=== PATIENT | female | born 1985 | race Caucasian/White ===

== ENCOUNTER 2022-11-23 05:29 | Inpatient (IN) | payer BC, MEDICAID, SELFPAY ==
--- NOTE | 2022-11-10 12:40 | EKG12_ITS ---
Test Reason : PRE OP Blood Pressure : / mmHG Vent. Rate : 084 BPM Atrial Rate : 084 BPM P-R Int : 136 ms QRS Dur : 074 ms QT Int : 358 ms P-R-T Axes : 078 086 067 degrees QTc Int : 423 ms Normal sinus rhythm Normal ECG Confirmed by SONI PEREA, CHIQUITA ([id number]), commercial production editor BRITNI HERNANDEZ ([id number]) on 11/11/2022 9:52:48 AM Referred By: Bradley Galeana Confirmed By:CHIQUITA SHAFER MD
[2022-11-10 13:28] LABS: Absolute Lymphocyte Count 1.82 X10^3/uL (0.83-4.51); Basophil# 0.04 X10^3/uL; Basophil% 0.7 % (0-1); Eosinophil# 0.19 X10^3/uL; Eosinophils% 3.5 % (0-5); Hematocrit 45.3 % (37-47); Lymphocyte # 1.82 X10^3/ul (0.83-4.51); Lymphocyte % 33.6 % (19-41); Mean Corp Hgb Conc 33.1 g/dL (32-36); Mean Corpuscular Hgb 29.1 pg (27.0-32.0); Mean Corpuscular Volume 87.8 fL (81-99); Mean Platelet Vol. 11.2 fl (6.2-12.0); Monocyte# 0.41 X10^3/uL; Monocyte% 7.6 % (0-10); NRBC Flagged by Analyzer 0 % (0-5); Neutrophil # 2.95 X10^3/uL (2.7-7.7); Neutrophil % 54.4 % (47-70); Platelet Count 244 K/mm3 (150-450); RBC Distribution Width CV 12.7 % (11.6-14.6); RBC Distribution Width SD 40.8 fl (35.1-43.9); Red Blood Count 5.16 M/mm3 (4.2-5.4); White Blood Count 5.4 K/mm3 (4.4-11.0)
[2022-11-10 13:53] LABS: Anion Gap 7 (5-15); BUN 15 mg/dL (7-18); BUN/Creat Ratio 16.2 RATIO (10-20); Calcium,Total 9.1 mg/dL (8.5-10.1); Chloride 107 mmol/L (98-107); Creatinine, Serum 0.92 mg/dL (0.55-1.02); EST Glomerular Filtration Rate 73 mL/min (>60); Est Glom Filt Rate - Afr Amer 88 mL/min (>60); Glucose 92 mg/dL (74-106); Potassium 3.6 mmol/L (3.5-5.1); Sodium Level 138 mmol/L (136-145)
[2022-11-10 13:54] LABS: Magnesium 2.3 mg/dL (1.6-2.6)
[2022-11-10 14:35] LABS: HIV - WCH Non-Reactive (Nonreactive); Hepatitis B Surface Antibody Reactive; Hepatitis C Antibody Non-Reactive (Nonreactive)
[2022-11-12 15:33] LABS: Hepatitis A AB, Total Negative (Negative)
--- NOTE | 2022-11-19 16:58 | PCM.HP.BLA ---
History and Physical Addendum MR#: [id number] Acct: [id number] Name:JAYANT GAMEZ Rep #: [id number] : 1985 ? ? Provider: Dr. Bradley Galeana DO Age/Sex:? 36/F ? ? Location: [facility].PAT Status: Signed Intake Vital Signs ? 09/24/2313:03 Height 5 ft 4 in Weight: 142 lb 8 oz BMI 24.4 Intake Visit Reasons:?LUMBER SPINE Is patient in pain?: Yes Pain scale (1-10): 3 Allergies No Known Allergies Allergy (Verified 09/24/22 14:04) Medications NK? 09/24/22 [History Confirmed 09/24/22] PFSH Medical History?(Updated 09/24/22 @ 15:[address] Bradley Galeana DO) Hypoglycemia MVP (mitral valve prolapse) Physical exam, pre-employment POTS (postural orthostatic tachycardia syndrome) Social History?(Updated 09/24/22 @ 14:18 by Claudia Tracy) Smoking Status:? Current every day smoker alcohol intake:? never HPI LUMBER SPINE Details: Parts of this documentation were recorded by a scribe, this documentation accurately reflects the service provided and the decisions made by me, Dr. Bradley Galeana DO 09/24/22 1024. JAYANT GARSIA is a 36 year old F here today for lower back pain. States that she has had issues with her back since she was 10. States that recently in January is when it became worse and she has been in constant pain. States that she was in PT and stopped it because the therapist told her there was nothing else they could do and ordered her an MRI. Patient did bring a disc with xrays and the MRI. States that she went to pain management at [facility]. States that she does get radiating pain down the front of her legs down to her ankles. States that bending, twisting, and lifting increases her pain. States that she has used ice and heat for the pain which doesn't help. Denies taking anything for the pain. States that in June she had an injection and it felt like he hit a bone in her back and since then she had had pain in the middle of her back. States that Dr. Karthik Jeffers at [facility] is the one who did her injection. Denies bowel or bladder dysfunction. States that she would like to talk about possible surgery. She was referred by Dr. Miranda Anderson which is who wants her to have a consultation about surgery. Jayant is a most pleasant young lady 36 years old who presents in the company of her and her daughter.? This problem began in January of last year for no apparent reason.? Overall her low back pain is worse than the bilateral leg pain.? He had to give up her job because of it.? He has had physical therapy for 2 months that failed to help her and in fact it made it worse.? She also had an epidural steroid injection done by Dr. Jeffers which did not help at all and actually made it worse.? Thus she has failed to conservative measures. On examination she can easily stand her toes and stand on her heels.? She can forward bend only about 45 degrees and has to stop because the tremendous pain.? She also has a lot of pain with extension and goes down both legs when it does.? He has 2+ patella and 2+ Achilles reflexes bilaterally.? Good motor strength of all the major muscle groups of both lower extremities.? She has no long tract signs.? Clonus is absent Babinski's are downgoing. The MRI scan that she brought with her that was done not too long ago demonstrates that she has a large herniation at L4-5 blocking part of the entire canal pressing on both sides.? He also has some desiccation of the L5-S1 disc.? The discs above are all perfectly normal. She is in a tremendous amount of pain in her back pain overall is worse than her bilateral leg pain.? Is unable to do hardly anything including housework.? Driving the car hurts her tremendously.? He wishes to have something done to alleviate her pain.? We will schedule for 360 degree fusion at the L4-5 level.? In addition we will do bilateral laminectomies certainly unilateral depending on how much material I can get out from 1 side.? We will internally fix her posteriorly also.? I will see her again at preop. Coding Level of Care Code Off vis,new,level 3 Diagnoses Herniated nucleus pulposus, L4-5? M51.26
[2022-11-23] VITALS (12 sets, daily range): BP systolic 82–114; BP diastolic 39–80; PULSE 62–80; RESP 16–18; TEMP 36.1–36.9; O2SAT 96–100; BMI 23.4; BMI 26.1
--- NOTE | 2022-11-23 | DISC_PTH ---
PATIENT: ALLEY GARSIA LOC: MS3 U#:[id number] AGE/SX: 36/F ROOM: [facility] [place] RE11/23/[address]: Dr. Bradley Galeana DO : 1985 BED: 1 DIS: 11/25/2022 SPEC #: [id number] RECD: 11/23/22 16:38 STATUS: TR REQ #: [id number] VALERI: 11/23/22 00:[address]: Bradley Galeana DEPT: SURGICAL PATHOLOGY RECD BY: Aman Reyes ENTERED: 11/24/22 09:44 SP TYPE: DISC OTHR DR: MD Dr. Tri Pena MD Dr. Autumn L White, MD Dr. Mary Catherine Sementi, DO MD Ponce Holder MD Dr. Eric Jopperi, DO MD Dr. Jordon Goldberg MD Dr. James Mooney, MD Dr. Jonathan Vogt, DO Dr. Vicky Santos, DO MD Dr. Roberto Anthony, DO MD Dr. Sondio Dubois MD Dr. Prakash Chand, MD Dr. Paul Nielsen, MD Dr. Paige Pierce, MD Dr. Ryan Burkholder, MD Jessica Franklin, RECYCLABLE [employer]ODU[employer] SORTER-C Tissues: Intervertebral disc, NOS Procedures: Surgery Specimen Level III HEADER OPERATION: ERAS, 360 fusion L4-L5 with laminectomy L4-L5 PRE-OP DIAGNOSIS: Herniated nucleus pulposus L4-L5 TISSUE SUBMITTED: L4-L5 disc MICROSCOPIC DIAGNOSIS Intervertebral disc, L4-L5, discectomy: Degenerative change. AM:melanie 11/25/2022 MICROSCOPIC DESCRIPTION Slides are reviewed. GROSS DESCRIPTION Received in fixative is one container labeled with the patient's name and designated L4-L5 disc. The specimen consists of multiple irregular fragments of renteria, indurated tissue that in aggregate measure 7.0 x 5.5 x 1.5 cm. The largest piece measures 3.0 cm in greatest dimension. Carton Inspector tissue is submitted in two cassettes. / SJ:melanie 11/24/2022 TC:5 CPT: 98120
[2022-11-23 06:07] LABS: Internal QC Validated? YES +Cl - CLEAR BKGD; Pregnancy, Urine Negative Negative
[2022-11-23] MEDS: Magnesium 1 GM over 15 mins IV (06:14)
[2022-11-23] MEDS: Lactated Ringers 1,000 ML 15 ML IV (06:14)
[2022-11-23] MEDS: Acetaminophen 500 MG Tablet 1000 MG PO ×2 (06:15→21:15)
[2022-11-23 07:15] LABS: Bedside Glucose 67 mg/dL (74-106)
--- NOTE | 2022-11-23 07:30 | RAD_ITS ---
STUDY: X-RAY - LUMBAR SPINE REASON FOR EXAM: Female, 36 years old. ERAS, 360 FUSION/ LAMINECTOMY, BILAT, L4-5 TECHNIQUE: 1 view(s) of the lumbar spine were obtained. COMPARISON: None FINDINGS: The localization instrument is seen along the anterior aspect of the L4-L5 disc space level. RAD/Spine 1 View Any Level IMPRESSION: The localization instrument is seen along the anterior aspect of the L4-L5 disc space level. Electronically Signed: Terry Downey MD at 10:49 EDT ,
[2022-11-23] MEDS: Cefazolin 2 GM in 0.9% Normal Saline 100 ML IV (07:33)
[2022-11-23] MEDS: Heparin 10,000 UNITS/10 ML Vial 10000 UNITS (08:25)
--- NOTE | 2022-11-23 09:59 | RAD_ITS ---
STUDY: X-RAY - LUMBAR SPINE REASON FOR EXAM: Female, 36 years old. ERAS, 360 FUSION L4-5 WITH LAMINECTOMY L4-5, BILAT TECHNIQUE: 1 view(s) of the lumbar spine were obtained. COMPARISON: None FINDINGS: The localization instrument is seen posterior to the L4-L5 disc space level. The patient is status post anterior fusion at the L4-L5 level with prosthetic disc placement. RAD/Spine 1 View Any Level IMPRESSION: The localization instrument is seen posterior to the L4-L5 disc space level. The patient is status post anterior fusion at the L4-L5 level with prosthetic disc placement. Electronically Signed: Terry Downey MD at 14:55 EDT ,
--- NOTE | 2022-11-23 10:45 | RAD_ITS ---
STUDY: X-RAY - LUMBAR SPINE REASON FOR EXAM: Female, 36 years old. ERAS, 360 FUSION L4-5 WITH LAMINECTOMY L4-5, BILAT TECHNIQUE: 1 view(s) of the lumbar spine were obtained. COMPARISON: Comparison is made with prior study done earlier today. FINDINGS: The patient is status post anterior fusion at the L4-L5 level with screw and jay jay fixation device as well as prosthetic disc. RAD/Spine 1 View Any Level IMPRESSION: Status post anterior fusion at the L4-L5 level. Electronically Signed: Terry Downey MD at 14:54 EDT ,
--- NOTE | 2022-11-23 11:10 | OP.PCM_ITS ---
Report of Operation Description of Surgical Findings:: Preoperative diagnosis: Herniated disc L4-5 with intractable low back pain and bilateral radiculopathy Postoperative diagnosis: The same Procedures: #1 anterior lumbar interbody fusion CPT code 64160 #2 application of anterior spine plate L4-5 CPT code 66883/59 #3 insertion of titanium cage L4-5 CPT code 74372 #4 bone marrow aspirate right iliac crest CPT code 32181 #5 use of spongy allograft L4-5 CPT code 08553 Co-surgeons: Dr. Galeana and Dr. Lee Registered Nurse Cardiac Telemetry: Phyllis Lomas NP Anesthesia: General endotracheal administered by [facility] EBL: Less than 100 cc Drains: None Complications: None Procedure: Patient was taken to the OR where she was placed on the OR table in the supine position. She was then placed under general endotracheal anesthesia. A Walker catheter was inserted. Neuro monitoring placed her leads on the patient. The abdomen was then prepped and draped in standard fashion. Surgical approach is described in Dr. Lee's operative summary. Once he had good exposure at L4-5 we took an intraoperative x-ray with a needle marker in place to confirm that we were indeed at the L4-[address] we were[address] Dr. Lee had good exposure with the Omni retractors in stable condition. Then remove the anterior annulus at 4 5 with a 10 blade. It was removed with pituitary rongeurs. I then used pituitary rongeurs to remove more nucleus from the disc base all the way back to the posterior portion of the disc. I then used both bowl curettes and ring curettes to remove the cartilage off the endplates above and below. I used the angled bowl curettes to remove some of the cartilage posteriorly at the posterior part of the disc space. Using a nerve hook I then checked for any further disc remnants remaining be on and the back end of the vertebral bodies but I could not find any. Measurements were then taken for the appropriate size cage. We ended up using a small 12 mm high 35 x 25 mm cage. Then used a broach to broach the space repeatedly using both the 10 mm broach and then followed by 12 mm broach. They gave us good bleeding and plate. Thorough irrigation was then carried out. I then filled the cage on each side with spongy allograft that was processed like a sponge. This was then soaked in the patient's own stem cells. Note that these were obtained prior to the beginning of the of the actual case a 60 cc were drawn from the right iliac crest. Supervisor Channel Process in the room then the cells and spun them down and concentrated the patient's own stem cells about 10 times. This was given back to us. Then soaked the aforementioned cage with the spongy bone in the patient's own stem cells and I tamped it into place and countersunk it a couple of millimeters. Following this we used a 27 mm plate entered it and then we used an awl to punch a hole in each of the 4 corners 1 at a time. Was followed by the insertion of self-tapping 30 mm screws at all 4 points. We then observed that with an intraoperative x-ray and found to be quite satisfactory with excellent position of the plate the screws and the cage. Amnionic membrane was placed over the plate as the vessels were allowed to go over the plate and this would prevent adhesions to the vessels which of course is quite important. The closure is then described in Dr. Lee's operative summary. This is the end of operative summary on Jayant Montero. This is Dr. Galeana dictating.
[2022-11-23] MEDS: THROMBIN (RECOMBINANT) 20,000 UNIT VIAL 20000 UNIT TOPICAL (12:35)
--- NOTE | 2022-11-23 14:15 | OP.PCM_ITS ---
Report of Operation Description of Surgical Findings:: Preoperative diagnosis: Herniated disc L4-5 with intractable low back pain and bilateral leg pain Postoperative diagnosis: The same Procedures: #1 posterior fusion L4-5 CPT code 67185 #2 lumbar laminectomy discectomy L4-5 on the left CPT code 79863 #3 internal fixation L4-5 CPT code 72798 #4 use of allograft bone CPT code 72850 Surgeon: Dr. Galeana Pot Annealer: Phyllis Lomas NP Anesthesia: General endotracheal administered by [facility] EBL: 50 cc Drains: None Complications: None Procedure: Once the anterior surgery was completely done and Dr. Lee had closed the anterior incision the patient was then rolled over onto her prone position on the Jim frame. After proper positioning with care to protect her bony prominences her breasts her ulnar nerves of both elbows her brachial plexus bilaterally and her cervical spine and facial features the back was prepped and draped in standard fashion I made a longitudinal incision over the lower part of her back subcutaneous tissues were incised the length of the skin incision I then opened the lumbar fascia to the left of the spinous processes and elevated the paravertebral muscles off the lamina that I thought would be 4 and 5 but indeed it was L5-S1 as seen on the plain x-ray simply move the marker up 1 level and took another x-ray to confirm that we were now at L4-5. To extend the incision cephalad about half an inch. Then elevated the To paravertebral muscles off the lamina of L4 and the top of the lamina of L5. Shruthi retractor was then put in place I then elevated the ligamentum flavum off the underside of the lamina of L4 and performed a laminectomy with 45 degree Kerrison rongeurs. Note that the ligament was first released with curettes. I then remove the ligamentum flavum in retrograde fashion with a 45 degree Kerrison rongeurs. I then retracted the dura and the L5 nerve root to the right side given us access to the protrusion. I cut into it with a 15 blade and took a section out. I then took more nucleus from within the disc space with pituitary rongeurs both upbites and straight. Of course we were able to see the cage in the interspace. [place] that the opening from the left side probably decompressed the whole thing and in fact she only had mostly back pain and not so much leg pain so I felt that it was not necessary to open and do a laminectomy on the opposite side. Note that we thoroughly irrigated every 10 to 50 minutes in the course of the case to prevent infection. We then put put an amniotic membrane over the dura to prevent adhesions and placed Gelfoam over the top of that. I cut the interspinous ligament between L4 and L5 down to near the dura. I enlarged it with double-action rongeurs. I then used a debby to debby lamina of L4 bilaterally and the lamina of L5 bilaterally. This was done I then placed a spongy allograft bone on both sides followed by the insertion of the N graft. Then placed the internal fixation device in place locked it down and activated the locking mechanism. Gave us a very good construct. We then closed the lumbar fascia using [id number] suture with #1 Vicryl followed by closure with subcutaneous tissues with 0 Vicryl and 2-0 Vicryl in layers in interrupted fashion and finally the skin was approximated using skin clips. Sterile dressings were then applied the patient was then recovered in the OR moved to her hospital bed and taken to recovery in satisfactory condition. This is the end of operative summary on Jayant Montero. This is Dr. Galeana dictating.
[2022-11-23] MEDS: Lactated Ringers 1,000 ML 100 ML IV (15:00)
--- NOTE | 2022-11-23 15:13 | OP.PCM_ITS ---
Report of Operation Date of Procedure: 11/23/22 Pre-Operative Diagnosis: herniated nucleus pulposus L4-L5 Post-Operative Diagnosis: same Surgery/Procedure Performed:: anterior lumbar interbody fusion L4-L5 Surgeon: Jesus Al Co-Surgeon Type of Anesthesia: General Estimated Blood Loss (mL): <100 Description of Procedure: HPI: Patient is a 36-year-old female assessed by Dr. Galeana and be appropriate for L4-L5 anterior interbody fusion. He also plans to perform instrumentation from posteriorly which she will perform and dictate separately. Vascular surgery services were requested for exposure and mobilization of the abdominal great vessels to facilitate L4-L5 instrumentation. Description of procedure: Upon obtaining form consent and verification correct patient procedure site patient was taken to the operating room where she was placed under general anesthesia. She was then positioned prepped and draped in usual sterile fashion a timeout was performed. Transverse incision was made inferior to the umbilicus in the left lower quadrant and Bovie electrocautery used to dissect down through subcutaneous tissue to the fascia. Self-retaining retractors were put in position and the fascia incised transversely, with relaxing incision inferior medially and superior laterally. The rectus abdominis muscle was then mobilized circumferentially with care taken to mobilize the epigastric vessels with the muscle. This was then retracted medially and blunt dissection performed to create a plane between the peritoneum and the anterior abdominal wall. Once the abdominal contents had been mobilized medially the posterior sheath was incised vertically with scissors and further medial mobilization of abdominal contents performed. Once we reached the midline a wet lap sponge was placed to maintain position, the rectus muscle was then retracted laterally, and an Omni retractor brought into position. Renal vein retractor was then used to further facilitate exposure of the anterior surface of the lumbar spine at the L4-L5 disc space. The patient had a high bifurcation of the aorta, so the left iliac artery was mobilized laterally, and the left iliac vein mobilized medially to obtain our exposure. The iliolumbar vein was ligated with clips and divided allowing further medial retraction of the vein. Soft tissue overlying the anterior surface of the spine was dissected with blunt dissection and retractors positioned for optimal exposure. At this point Dr. Galeana scrubbed in and the disc space was marked and confirmed with x- ray. He then performed his discectomy which he will describe in further detail in his portion of the dictation as well as details on implants placed. Once the fusion was completed the field was inspected for hemostasis and the retractors removed sequentially while further inspecting for any signs of bleeding. Once the retractors were removed the abdominal contents were allowed to return to their natural position, and the rectus muscle return to position. The anterior fascia was then closed with PDS suture followed by closure of the incision with 2-0 Vicryl, 3-0 Vicryl, 4-0 Monocryl and Dermabond. This point patient was repositioned for posterior instrumentation with Dr. Kervin antoine described in his dictation.
--- NOTE | 2022-11-23 16:01 | SUR.PHASEI ---
ARRIVED INTO PACU AT 1446. UNRESPONSIVE TO VERBAL COMMANDS. BREATHING SPONTANEOUSLY. RESTING WITH EYE CLOSED.
[2022-11-23] MEDS: Ondansetron 4 MG/2 ML Vial IV (17:33)
[2022-11-23] MEDS: Cefazolin 1 GM/50 ML BAG IV (17:34)
[2022-11-24] VITALS (8 sets, daily range): BP systolic 92–122; BP diastolic 44–74; PULSE 61–84; RESP 16–18; TEMP 36.5–37.1; O2SAT 95–98
[2022-11-24] MEDS: Cefazolin 1 GM/50 ML BAG IV (00:42)
[2022-11-24] MEDS: Lactated Ringers 1,000 ML 100 ML IV (02:13)
[2022-11-24] MEDS: Acetaminophen 500 MG Tablet 1000 MG PO ×3 (05:33→21:47)
[2022-11-24] MEDS: FLUoxetine 10 MG Capsule PO (07:47)
--- NOTE | 2022-11-24 09:46 | CASEMGMT ---
Addendum entered by Nanci Hicks 11/24/22 11:27: Pt noted to be ambulating in halls without device. LUZ BLANCO into pt room, pt states she feels that she does not need a walker or BSC. She denies further homegoing needs. Original Note: LUZ BLANCO Assessment: Face to Face with pt for initial transition planning/care coordination assessment. RN FRANCIS introduced self and role at [facility], pt voices understanding and consents to assessment. Pt is A/O x4 and answers all questions appropriately at this time. Pt lying in bed with and two children at bedside. Care providers, pharmacy, and demographics verified/updated. Admitting Dx: 360 fusion L4-5 with laminectomy PCP:[facility] Specialists:kenya Anderson Preferred [facility]acy: [facility] Insurance: KIRAN Solares Prescription Benefit: yes LNOK: Matt Montero, Living Arrangements: Pt lives with and 3 children in a two story home with 2 steps to enter without a rail. Pt reports she is I in ADL's and denies concerns at home. Pt able to provide any assistance needed. Transportation: Pt drives self and denies concerns with transportation. Pt will provide transportation until pt able. DME/HHC/SNF: Pt has a cane at home. Pt is interested in a FWW and BSC. Provided pt with a verbal local in network list of DME companies, pt chose [employer]. Pt denies hx of HHC or SNF stays. Pt states no concerns with going home at time of dc. Pt states no further concerns/needs. CM to follow. Advised pt to ask CM if any further question/concerns/needs arise, voices understanding. Pt Goal: Home Plan: Home
[2022-11-25 04:00] VITALS: BP 106/64; PULSE 77; RESP 16; TEMP 36.8; O2SAT 97
[2022-11-25 04:02] VITALS: BP 106/64; PULSE 77; RESP 16; TEMP 36.8; O2SAT 97
[2022-11-25] MEDS: Acetaminophen 500 MG Tablet 1000 MG PO ×2 (05:18→14:17)
[2022-11-25 09:59] VITALS: BP 114/71; PULSE 62; RESP 18; TEMP 36.6; O2SAT 98
[2022-11-25] MEDS: FLUoxetine 10 MG Capsule PO (10:02)
[2022-11-25 14:13] VITALS: BP 107/76; PULSE 78; RESP 18; TEMP 36.6; O2SAT 97
[2022-11-25] MEDS: diazePAM 5 MG Tablet PO (14:17)
--- NOTE | 2022-11-25 14:53 | CASEMGMT ---
Referral sent to [facility] for FWW via [facility] at this time. BSC rx given to pt.
--- NOTE | 2022-11-25 15:25 | DCINST_ITS ---
Discharge Instructions Activity May shower in (days): 6 May resume sexual activity in: 4-6 weeks Weight Bearing Status: Full weight bearing Lifting Restrictions: 15# Follow Up Care Test Results: Test results from this visit will be discussed in further detail at your follow- up appointment, if applicable. Discharge Plan Admission Admit Date/Time: 11/23/22 05:29 Primary Reason for Your Visit: Lumbar Fusion Attending Provider: Bradley Galeana Primary Care Provider: Ilana Clarke Discharge Orders/Prescriptions Prescriptions: No Action fluoxetine 10 mg Tablet 10 mg PO DAILY oxycodone-acetaminophen 5-325 mg tablet 1 tab PO Q6H PRN (Reason: pain) 10 Days Qty: 40 0RF Referrals / Follow Up: Ilana Clarke MD [Primary Care Provider] - Disposition Disposition (needs filled in before D/C Order can be placed): Home, Self Care
--- NOTE | 2022-11-25 15:28 | DS.PCM_ITS ---
Providers Date of Admission: 11/23/22 Primary Care Physician: Dr. Ilana Clarke MD Attending Physician: This is a summary on [facility]. Patient was admitted on Wednesday 2 days ago. She underwent 360 degree fusion at the L4-5 level including a laminectomy at L4-5 on the left side. She tolerated the procedure well. Exam today she is neurologically intact in both of her dressings are dry. She has bowel sounds now and has had a lot of flatulence yesterday and today. I gave her and her Reza directions regarding her care activities etc. She will remove the dressings on Wednesday. She will be able to start showering on Wednesday. She was given oxycodone 5/325 for pain control at home. She already has an appointment to see me about 11 days or so from now. This is the end of the discharge summary on [facility]. This is Dr. Galeana dictating. Reason For Visit: 360 FUSION L4-5 WITH LAMI Medications at Discharge Home Medications fluoxetine 10 mg tablet 10 mg PO DAILY DEPRESSION 11/09/22 oxycodone-acetaminophen 5 mg-325 mg tablet 1 tab PO Q6H PRN pain 10 days #40 tab s 11/25/22 Weight / BMI Weight Weight: 153 lb Body Mass Index (BMI) 26.1 ABG / Lab / Microbiology Data Result Diagrams: 11/10/22 12:55 11/10/22 12:55 Microbiology: Microbiology 11/10/22 12:55 Swab (Method) Nasal Screen MRSA/MSSA - Final D/C Instructions May shower in (days): 6 May resume sexual activity in: 4-6 weeks Weight Bearing Status: Full weight bearing Meaningful Use Info Meaningful Use Diagnoses (Choose all that apply): None applicable Discharge Plan Admission Admit Date/Time: 11/23/22 05:29 Primary Reason for Your Visit: Lumbar Fusion Attending Provider: Bradley Galeana Primary Care Provider: Ilana Clarke Discharge Orders/Prescriptions Prescriptions: No Action fluoxetine 10 mg Tablet 10 mg PO DAILY oxycodone-acetaminophen 5-325 mg tablet 1 tab PO Q6H PRN (Reason: pain) 10 Days Qty: 40 0RF Referrals / Follow Up: Ilana Clarke MD [Primary Care Provider] - Disposition Disposition (needs filled in before D/C Order can be placed): Home, Self Care
--- NOTE | 2022-11-25 16:22 | PHA.DC.MR ---
Pharmacy Service has performed discharge medication reconciliation for this patient. The patient's discharge medication list was reviewed for discrepancies and discrepancies were resolved. Unable to cruise counselor before discharge. Home Medications fluoxetine 10 mg tablet 10 mg PO DAILY DEPRESSION 11/09/22 oxycodone-acetaminophen 5 mg-325 mg tablet 1 tab PO Q6H PRN pain 10 days #40 tabs 11/25/22
== END 2022-11-25 16:01 | disposition home or self-care (01) | DRG 455 ==
LOC: ACINP 05:30 → MS3 08:58
PROVIDERS: Anesthesiology; Admitting Provider Orthopaedic Surgery; PCP Internal Medicine; Referring Provider Orthopaedic Surgery; Visit Provider Orthopaedic Surgery
PROC: 0SG00K1 Fusion of Lumbar Vertebral Joint with Nonautologous Tissue Substitute, Posterior Approach, Posterior Column, Open Approach (ICD-10-PCS; principal; 2022-11-23 07:00)
DX: M51.16 Intervertebral disc disorders with radiculopathy, lumbar region (principal); F17.200 Nicotine dependence, unspecified, uncomplicated
CPT/HCPCS: 36415; 72020; 80048; 81025; 82962; 83735; 85025; 86703; 86706; 86708; 86803; 87077; 87081; 88304; 93005; 94668; 97116; 97162; 97530; 99252; 99406; A4648; C1713; J7120; G0463; J2405; J3475